=== PATIENT | female | born 1975 | race Caucasian/White ===

== ENCOUNTER 2017-07-02 19:34 | Emergency (ER) | payer OTHER ==
[2017-07-02] MEDS: ONDANSETRON (ODT) 4 MG TAB ODT (20:32)
[2017-07-02] MEDS: HYDROCODONE/APAP (5/325) TAB PO (20:32)
[2017-07-02] MEDS: CEFTRIAXONE 1 GM INJ IM (20:45)
[2017-07-02 21:20] LABS: ADD UMIC YES; UR ASCORBIC ACID NEGATIVE (NEGATIVE); UR BILIRUBIN (Dip) NEGATIVE (NEGATIVE); UR BLOOD (Dip) 3+ mg/dL (NEGATIVE); UR CLARITY CLOUDY (CLEAR); UR COLOR RED (YELLOW); UR GLUCOSE (Dip) 1+ mg/dL (NEGATIVE); UR KETONES (Dip) NEGATIVE (NEGATIVE); UR LEUKOCYTE ESTERASE (Dip) 2+ Leu/ul (NEGATIVE); UR NITRITE (Dip) NEGATIVE (NEGATIVE); UR RBC > 182 /HPF (0-5); UR SPECIFIC GRAVITY (Dip) 1.014 (1.003-1.030); UR TOTAL PROTEIN (Dip) 2+ mg/dl (NEGATIVE); UR UROBILINOGEN (Dip) NEGATIVE (NEGATIVE); UR WBC > 182 /HPF (0-5)
[2017-07-02] MEDS: CIPROFLOXACIN 500 MG TAB PO (21:43)
== END 2017-07-02 22:00 | disposition home or self-care (01) ==
LOC: FTE 19:34
DX: R30.0 Dysuria (principal)
CPT/HCPCS: 81001; 81025; 87086; 96372; 99284-25

== ENCOUNTER 2019-01-06 21:16 | Emergency (ER) | payer MEDICAID, OTHER ==
[2019-01-06] MEDS ORDERED: LIDOCAINE 1% (MPF) 5 ML VIAL INFIL (23:00)
[2019-01-06] MEDS: KETOROLAC 30 MG INJ IM (23:32)
== END 2019-01-07 00:24 | disposition home or self-care (01) ==
LOC: FTE 21:16
DX: R51 Headache (principal)
CPT/HCPCS: 81025; 96372; 99284-25